=== PATIENT | male | born 2000 | race Caucasian/White ===

== ENCOUNTER 2018-10-27 13:47 | Emergency (ER) | payer BC ==
[2018-10-27 14:17] VITALS: BP 123/66
[2018-10-27] MEDS ORDERED: Ibuprofen ADULT LIQ* 600 MG/30 ML UDC PO ONE (14:28)
[2018-10-27] MEDS ORDERED: Dexamethasone TAB* 4 MG PO ONE (14:28)
[2018-10-27] MEDS ORDERED: Lidocaine 2% VISCOUS* 15 ML UDC PO ONE (14:29)
--- NOTE | 2018-10-27 14:30 | UC ---
UC General HPI - HPI Summary HPI Summary: DAY 2 OF SORE THROAT WITH SUBJECTIVE FEVER AND CONGESTION. FEELS NOT WELL. - History of Current Complaint Chief Complaint: UCRespiratory Stated Complaint: CONGESTION,ST Time Seen by Provider: 10/27/18 14:24 Hx Obtained From: Patient Onset/Duration: Gradual Onset Timing: Constant Pain Intensity: 7 Associated Signs & Symptoms: Negative: Abdominal Pain, Diarrhea, Nausea, Vomiting - Allergy/Home Medications Allergies/Adverse Reactions: Allergies Allergy/AdvReac Type Severity Reaction Status Date / Time No Known Allergies Allergy Verified 10/27/18 14:16 PMH/Surg Hx/FS Hx/Imm Hx Previously Healthy: Yes - Surgical History Surgical History: Yes Surgery Procedure, Year, and Place: LEFT Shoulder - Family History Known Family History: Positive: Non-Contributory - Social History Occupation: Student Alcohol Use: None Substance Use Type: None Smoking Status (MU): Never Smoked Tobacco - Immunization History Vaccination Up to Date: Yes Review of Systems All Other Systems Reviewed And Are Negative: No Constitutional: Positive: Fever, Fatigue Skin: Negative: Rash Eyes: Negative: Drainage, Eye Redness ENT: Positive: Sore Throat. Negative: Ear Ache, Sinus Pain/Tenderness Respiratory: Negative: Shortness Of Breath, Cough Gastrointestinal: Negative: Abdominal Pain, Vomiting, Diarrhea, Nausea Physical Exam Triage Information Reviewed: Yes Appearance: Well-Appearing Vital Signs: Initial Vital Signs Temp 98.3 F 10/27/18 14:16 Pulse 98 10/27/18 14:16 Resp 16 10/27/18 14:16 BP 123/66 10/27/18 14:16 Pulse Ox 98 10/27/18 14:16 Vital Signs Reviewed: Yes Eyes: Positive: Conjunctiva Clear ENT: Positive: Pharyngeal erythema, TMs normal, Tonsillar swelling - L slightly > R, Tonsillar exudate - small amount of mucoid white on each tonsil., Uvula midline. Negative: Nasal congestion, Nasal drainage, Trismus, Muffled voice, Hoarse voice Neck: Positive: Supple, Tenderness @ - peritonsilar nodes, Enlarged Nodes @ - peritonsilar nodes Respiratory: Positive: Lungs clear, Normal breath sounds Cardiovascular: Positive: RRR, No Murmur Abdomen Description: Positive: Nontender Musculoskeletal: Positive: ROM Intact Neurological: Positive: Alert Psychological: Positive: Age Appropriate Behavior Skin Exam: Normal Skin: Negative: Rashes Course/Dx - Differential Dx - Multi-Symptom Differential Diagnoses: Other - rapid strep is negative and no overt peritonsilar abscess; however, exam is concerning for an early cellulitis thus will tx for a presumptive bacterial infection. - Diagnoses Provider Diagnosis: Tonsillitis Discharge ED - Sign-Out/Discharge Documenting (check all that apply): Patient Departure All imaging exams completed and their final reports reviewed: No Studies - Discharge Plan Condition: Stable Disposition: HOME Prescriptions: Cephalexin CAP* [Keflex CAP*] 500 mg PO BID 10 Days #20 cap Patient Education Materials: Tonsillitis (ED) Forms: *School Release Referrals: [facility] [Outside] Additional Instructions: FOLLOW UP FOR A RECHECK IN 3 DAYS. GO TO THE ER FOR ANY WORSENING. - Billing Disposition and Condition Condition: STABLE Disposition: Home - Attestation Statements Provider Attestation: Per institutional requirements, I have reviewed the chart, however, I was not consulted specifically or made aware of this patient by the midlevel provider. I did not personally evaluate, interact with , or disposition this patient.
== END 2018-10-27 14:50 | disposition home or self-care (01) ==
LOC: UCCORT 13:47
DX: J03.90 Acute tonsillitis, unspecified (principal)
CPT/HCPCS: 87651; 99202; A9270-GY; G0463; J8540